=== PATIENT | female | born 1940 | race Caucasian/White ===

== ENCOUNTER 2016-06-04 08:08 | Inpatient (IN) | payer MEDICARE, MEDICAID ==
[~2016-06-04] VITALS: Ht 157.5 cm; Wt 90.3 kg
[2016-06-04] VITALS (20 sets, daily range): BP systolic 130–168; RESP 12–28; TEMP 96.3–98.1; Ht 157.5 cm; Wt 90.3 kg
[2016-06-04] MEDS ORDERED: Atorvastatin 40 MG TAB ONE (08:46)
[2016-06-04] MEDS ORDERED: ASPIRIN 81 MG CHEW TAB ONE ×2 (08:46→08:47)
[2016-06-04] MEDS ORDERED: LINEZOLID PO SCH (09:00)
[2016-06-04] MEDS ORDERED: MAG HYDROX 30 ML UDC PO PRN (10:05)
[2016-06-04] MEDS ORDERED: PROMETHAZINE 25 MG/ML VIAL IV PRN (10:05)
[2016-06-04] MEDS ORDERED: NITROGLYCERIN 50 MG/250 ML 250 ML IV PRN (10:05)
[2016-06-04] MEDS ORDERED: TRAMADOL 50 MG TAB PO PRN (10:05)
[2016-06-04] MEDS ORDERED: NITROGLYCERIN SL 0.4 MG TAB SL PRN ×2 (10:05)
[2016-06-04] MEDS ORDERED: BISACODYL 10 MG SUPP RECTAL PRN (10:05)
[2016-06-04] MEDS ORDERED: SALINE FLUSH 10 ML FLUSH PRN (10:05)
[2016-06-04] MEDS ORDERED: ONDANSETRON 4 MG TAB PO PRN (10:05)
[2016-06-04] MEDS ORDERED: TEMAZEPAM 15 MG CAP PO PRN (10:05)
[2016-06-04] MEDS ORDERED: DOCUSATE SOD 100 MG CAP PO PRN (10:05)
[2016-06-04] MEDS ORDERED: ACETAMINOPHEN 325 MG TAB PO PRN (10:05)
[2016-06-04] MEDS: LINEZOLID 600 MG TAB PO SCH ×2 (12:08→20:16)
[2016-06-04] MEDS ORDERED: TICAGRELOR 90 MG TAB ONE (17:50)
[2016-06-04] MEDS ORDERED: MIDAZOLAM 2 MG/2 ML INJ ONE (17:50)
[2016-06-04] MEDS ORDERED: FENTANYL 100 MCG/2 ML AMP ONE (17:50)
[2016-06-04] MEDS ORDERED: LIDOCAINE 2% 20 ML ONE (17:50)
[2016-06-04] MEDS: LEVEMIR INSULIN SUBQ SCH (18:36)
[2016-06-04] MEDS: TICAGRELOR 90 MG TAB PO SCH (20:14)
[2016-06-04] MEDS: SALINE FLUSH 10 ML FLUSH SCH (20:14)
[2016-06-04] MEDS: Atorvastatin 20 MG TAB PO SCH (20:16)
[2016-06-04] MEDS: ISOSORBIDE DN PO SCH (20:16)
[2016-06-04] MEDS: AMIODARONE 200 MG TAB PO SCH (20:16)
[2016-06-04] MEDS: METOPROLOL TART 25 MG TAB PO SCH (20:17)
[2016-06-04] MEDS: TRAZODONE 50 MG TAB PO SCH (20:17)
[2016-06-04] MEDS: ONDANSETRON 4 MG VIAL IV PRN (20:57)
[2016-06-04] MEDS ORDERED: LINEZOLID 600 MG TAB PO SCH (21:00)
[2016-06-04] MEDS ORDERED: KCL CR 10 MEQ TAB PO SCH (21:00)
[2016-06-05] VITALS (17 sets, daily range): BP systolic 107–142; RESP 16–28; TEMP 97.3–98.8
[2016-06-05] MEDS: SODIUM CHLORIDE 0.9% FLUSH BAG 500 ML IV SCH (05:53)
[2016-06-05] MEDS: ASPIRIN 81 MG CHEW TAB PO SCH (08:48)
[2016-06-05] MEDS: SALINE FLUSH 10 ML FLUSH SCH ×2 (08:48→20:50)
[2016-06-05] MEDS: ISOSORBIDE DN PO SCH ×2 (08:48→21:11)
[2016-06-05] MEDS: AMIODARONE 200 MG TAB PO SCH ×2 (08:49→21:10)
[2016-06-05] MEDS: FAMOTIDINE 20 MG TAB PO SCH (08:49)
[2016-06-05] MEDS: METOPROLOL TART 25 MG TAB PO SCH ×2 (08:49→21:11)
[2016-06-05] MEDS: LINEZOLID 600 MG TAB PO SCH ×2 (08:49→21:11)
[2016-06-05] MEDS: TICAGRELOR 90 MG TAB PO SCH ×2 (08:49→21:10)
[2016-06-05] MEDS: Furosemide 40 MG TAB PO SCH (08:50)
[2016-06-05] MEDS ORDERED: ASPIRIN 81 MG CHEW TAB PO SCH (09:00)
[2016-06-05] MEDS: LEVEMIR INSULIN SUBQ SCH ×2 (09:08→17:00)
[2016-06-05] MEDS ORDERED: DEXTROSE 50% SYRINGE 50 ML IV ONE (18:15)
[2016-06-05] MEDS ORDERED: DEXTROSE 50% 50 ML ONE (18:19)
[2016-06-05] MEDS ORDERED: Furosemide 40 MG/4 ML VIAL IV ONE (19:45)
[2016-06-05] MEDS ORDERED: NEB-Levalbuterol 0.31 MG/3 ML NEBU INH SCH (20:00)
[2016-06-05] MEDS: NEB-XOPENEX 0.63 MG/3 ML INH SCH ×2 (20:00→23:00)
[2016-06-05] MEDS: TRAZODONE 50 MG TAB PO SCH (21:10)
[2016-06-05] MEDS: Atorvastatin 20 MG TAB PO SCH (21:11)
[2016-06-06 00:13] VITALS: BP_SYST 100; RESP 18; TEMP 97.1
[2016-06-06] MEDS: SODIUM CHLORIDE 0.9% FLUSH BAG 500 ML IV SCH (05:51)
[2016-06-06] MEDS: LEVEMIR INSULIN SUBQ SCH ×2 (08:00→17:00)
[2016-06-06] MEDS: NEB-XOPENEX 0.63 MG/3 ML INH SCH ×3 (08:13→15:27)
[2016-06-06 08:40] VITALS: BP_SYST 124; RESP 18; TEMP 97.2
[2016-06-06] MEDS: METOPROLOL TART 25 MG TAB PO SCH ×2 (08:53→20:09)
[2016-06-06] MEDS: FAMOTIDINE 20 MG TAB PO SCH (08:53)
[2016-06-06] MEDS: LINEZOLID 600 MG TAB PO SCH (08:53)
[2016-06-06] MEDS: ASPIRIN 81 MG CHEW TAB PO SCH (08:53)
[2016-06-06] MEDS: Furosemide 40 MG TAB PO SCH (08:53)
[2016-06-06] MEDS: ISOSORBIDE DN PO SCH ×2 (08:53→20:10)
[2016-06-06] MEDS: TICAGRELOR 90 MG TAB PO SCH ×2 (08:53→20:09)
[2016-06-06] MEDS: AMIODARONE 200 MG TAB PO SCH ×2 (08:54→20:09)
[2016-06-06] MEDS: SALINE FLUSH 10 ML FLUSH SCH ×2 (09:04→20:09)
[2016-06-06 11:39] VITALS: BP_SYST 142; RESP 18; TEMP 98.9
[2016-06-06 15:33] VITALS: BP_SYST 124; RESP 18; TEMP 96.5
[2016-06-06 19:34] VITALS: BP_SYST 132
[2016-06-06] MEDS: DUONEB INH SCH (19:49)
[2016-06-06] MEDS: TRAZODONE 50 MG TAB PO SCH (20:09)
[2016-06-06] MEDS: Atorvastatin 20 MG TAB PO SCH (20:10)
[2016-06-06] MEDS: DOCUSATE SOD 100 MG CAP PO SCH (22:29)
[2016-06-06] MEDS: POLYETHYLENE GLYCOL 17 GM PACKET PO SCH (22:30)
[2016-06-06 23:14] VITALS: BP_SYST 130; RESP 18; TEMP 97.6
[2016-06-07 03:41] VITALS: BP_SYST 140; RESP 18; TEMP 97
[2016-06-07] MEDS: SODIUM CHLORIDE 0.9% FLUSH BAG 500 ML IV SCH (05:02)
[2016-06-07 07:26] VITALS: BP_SYST 130; RESP 18; TEMP 97.5
[2016-06-07] MEDS: DUONEB INH SCH ×3 (07:55→20:02)
[2016-06-07] MEDS: LEVEMIR INSULIN SUBQ SCH ×2 (08:00→17:00)
[2016-06-07] MEDS: DOCUSATE SOD 100 MG CAP PO SCH ×2 (09:00→20:15)
[2016-06-07] MEDS: ASPIRIN 81 MG CHEW TAB PO SCH (09:16)
[2016-06-07] MEDS: TICAGRELOR 90 MG TAB PO SCH ×2 (09:16→20:13)
[2016-06-07] MEDS: AMIODARONE 200 MG TAB PO SCH ×2 (09:16→20:13)
[2016-06-07] MEDS: METOPROLOL TART 25 MG TAB PO SCH ×2 (09:16→20:13)
[2016-06-07] MEDS: POLYETHYLENE GLYCOL 17 GM PACKET PO SCH (09:17)
[2016-06-07] MEDS: FAMOTIDINE 20 MG TAB PO SCH (09:19)
[2016-06-07] MEDS: SALINE FLUSH 10 ML FLUSH SCH ×2 (09:19→20:15)
[2016-06-07] MEDS: ISOSORBIDE DN PO SCH ×2 (09:19→20:15)
[2016-06-07] MEDS: ONDANSETRON 4 MG VIAL IV PRN (09:31)
[2016-06-07 11:44] VITALS: BP_SYST 132; RESP 18; TEMP 97.3
[2016-06-07] MEDS: CEFTRIAXONE 1 GM in SODIUM CHLORIDE 0.9% 50 ML IV SCH (12:22)
[2016-06-07 15:28] VITALS: BP_SYST 128; RESP 18; TEMP 97.6
[2016-06-07] MEDS ORDERED: BISACODYL 10 MG SUPP RECTAL PRN (20:00)
[2016-06-07] MEDS: SODIUM CHLORIDE 0.9% 1,000 ML IV SCH (20:12)
[2016-06-07] MEDS: TRAZODONE 50 MG TAB PO SCH (20:12)
[2016-06-07] MEDS: Atorvastatin 20 MG TAB PO SCH (20:13)
[2016-06-07 20:23] VITALS: BP_SYST 128; RESP 18; TEMP 96.5
[2016-06-07 22:52] VITALS: BP_SYST 140; RESP 20; TEMP 97.8
[2016-06-08 03:27] VITALS: BP_SYST 138; RESP 18; TEMP 97.8
[2016-06-08] MEDS: SODIUM CHLORIDE 0.9% FLUSH BAG 500 ML IV SCH (05:49)
[2016-06-08 08:05] VITALS: BP_SYST 162; RESP 16; TEMP 97
[2016-06-08] MEDS ORDERED: MISSING DOSE XX ONE (08:25)
[2016-06-08] MEDS: DOCUSATE SOD 100 MG CAP PO SCH ×2 (08:29→21:00)
[2016-06-08] MEDS: ASPIRIN 81 MG CHEW TAB PO SCH (08:29)
[2016-06-08] MEDS: AMIODARONE 200 MG TAB PO SCH (08:30)
[2016-06-08] MEDS: FAMOTIDINE 20 MG TAB PO SCH (08:30)
[2016-06-08] MEDS: LEVEMIR INSULIN SUBQ SCH ×2 (08:31→18:48)
[2016-06-08] MEDS: TICAGRELOR 90 MG TAB PO SCH (08:31)
[2016-06-08] MEDS: METOPROLOL TART 25 MG TAB PO SCH (08:31)
[2016-06-08] MEDS: CEFTRIAXONE 1 GM in SODIUM CHLORIDE 0.9% 50 ML IV SCH (08:31)
[2016-06-08] MEDS: DUONEB INH SCH ×3 (08:49→19:52)
[2016-06-08] MEDS: SODIUM CHLORIDE 0.9% 1,000 ML IV SCH (09:30)
[2016-06-08] MEDS: POLYETHYLENE GLYCOL 17 GM PACKET PO SCH (09:30)
[2016-06-08] MEDS: SALINE FLUSH 10 ML FLUSH SCH (09:31)
[2016-06-08] MEDS: ISOSORBIDE DN PO SCH (11:09)
[2016-06-08 11:45] VITALS: BP_SYST 136; RESP 16; TEMP 96.4
[2016-06-08 14:55] VITALS: BP_SYST 128; RESP 16; TEMP 97.4
[2016-06-08] MEDS ORDERED: hePARIN 1,000 UNITS/ML (PORCINE) 10 ML ONE (16:57)
[2016-06-08] MEDS ORDERED: SODIUM CHLORIDE 0.9% 1,000 ML IV SCH (17:05)
[2016-06-08] MEDS ORDERED: ALBUMIN HUMAN 25GM (25%) 100 ML IV PRN (17:05)
[2016-06-08] MEDS ORDERED: SODIUM CHLORIDE 0.9% 1,000 ML IV PRN (17:05)
[2016-06-08] MEDS ORDERED: ONDANSETRON 4 MG VIAL IV PRN ×2 (17:05)
[2016-06-08] MEDS: BUMETANIDE 1 MG/4 ML VIAL IV SCH (18:49)
[2016-06-08 20:08] VITALS: BP_SYST 156; RESP 18; TEMP 96.2
[2016-06-09] VITALS (9 sets, daily range): BP systolic 112–146; RESP 16–20; TEMP 96.5–98.6
[2016-06-09] MEDS: TICAGRELOR 90 MG TAB PO SCH ×3 (00:58→22:08)
[2016-06-09] MEDS: TRAZODONE 50 MG TAB PO SCH ×2 (00:58→22:07)
[2016-06-09] MEDS: TEMAZEPAM 7.5 MG CAP PO PRN ×2 (00:59→22:07)
[2016-06-09] MEDS: ISOSORBIDE DN PO SCH ×3 (01:09→22:07)
[2016-06-09] MEDS: METOPROLOL TART 25 MG TAB PO SCH ×3 (01:10→22:08)
[2016-06-09] MEDS: Atorvastatin 20 MG TAB PO SCH ×2 (01:12→22:07)
[2016-06-09] MEDS: AMIODARONE 200 MG TAB PO SCH ×3 (01:12→22:08)
[2016-06-09] MEDS: SALINE FLUSH 10 ML FLUSH SCH ×3 (01:22→22:09)
[2016-06-09] MEDS: SODIUM CHLORIDE 0.9% FLUSH BAG 500 ML IV SCH (06:32)
[2016-06-09] MEDS ORDERED: SODIUM CHLORIDE 0.9% 1,000 ML IV SCH (07:00)
[2016-06-09] MEDS ORDERED: ALBUMIN HUMAN 25GM (25%) 100 ML IV PRN (07:00)
[2016-06-09] MEDS ORDERED: SODIUM CHLORIDE 0.9% 1,000 ML IV PRN (07:00)
[2016-06-09] MEDS: POLYETHYLENE GLYCOL 17 GM PACKET PO SCH (07:42)
[2016-06-09] MEDS: LEVEMIR INSULIN SUBQ SCH ×2 (08:00→17:10)
[2016-06-09] MEDS: DUONEB INH SCH ×3 (08:06→19:48)
[2016-06-09] MEDS: BUMETANIDE 1 MG/4 ML VIAL IV SCH ×2 (08:13→17:05)
[2016-06-09] MEDS: CEFTRIAXONE 1 GM in SODIUM CHLORIDE 0.9% 50 ML IV SCH (08:14)
[2016-06-09] MEDS: ASPIRIN 81 MG CHEW TAB PO SCH (08:14)
[2016-06-09] MEDS: FAMOTIDINE 20 MG TAB PO SCH (08:15)
[2016-06-09] MEDS: DOCUSATE SOD 100 MG CAP PO SCH ×2 (08:28→20:44)
[2016-06-09] MEDS: ONDANSETRON 4 MG VIAL IV PRN (09:19)
[2016-06-09] MEDS: LORAZEPAM 0.5 MG TAB PO PRN (22:08)
[2016-06-10 02:47] VITALS: BP_SYST 122; RESP 16; TEMP 97.9
[2016-06-10] MEDS: SODIUM CHLORIDE 0.9% FLUSH BAG 500 ML IV SCH (06:26)
[2016-06-10 07:02] VITALS: BP_SYST 132; RESP 22; TEMP 98.5
[2016-06-10] MEDS: DUONEB INH SCH ×3 (07:47→18:58)
[2016-06-10] MEDS: LEVEMIR INSULIN SUBQ SCH ×2 (08:00→17:00)
[2016-06-10] MEDS: SALINE FLUSH 10 ML FLUSH SCH ×2 (08:00→20:00)
[2016-06-10] MEDS: METOPROLOL TART 25 MG TAB PO SCH (09:00)
[2016-06-10] MEDS: DOCUSATE SOD 100 MG CAP PO SCH ×2 (09:00→21:00)
[2016-06-10] MEDS: FAMOTIDINE 20 MG TAB PO SCH (09:00)
[2016-06-10] MEDS: AMIODARONE 200 MG TAB PO SCH (09:00)
[2016-06-10] MEDS: POLYETHYLENE GLYCOL 17 GM PACKET PO SCH (09:00)
[2016-06-10] MEDS: ASPIRIN 81 MG CHEW TAB PO SCH (09:00)
[2016-06-10] MEDS: ISOSORBIDE DN PO SCH ×2 (09:00→21:00)
[2016-06-10 10:27] VITALS: BP_SYST 152; RESP 20; TEMP 98.7
[2016-06-10] MEDS: BUMETANIDE 1 MG/4 ML VIAL IV SCH ×2 (13:49→17:00)
[2016-06-10] MEDS: CEFTRIAXONE 1 GM in SODIUM CHLORIDE 0.9% 50 ML IV SCH (13:49)
[2016-06-10] MEDS: TICAGRELOR 90 MG TAB PO SCH ×2 (13:50→21:50)
[2016-06-10 15:08] VITALS: BP_SYST 142; RESP 20; TEMP 98.1
[2016-06-10 19:00] VITALS: BP_SYST 174; RESP 18; TEMP 97.8
[2016-06-10] MEDS: Atorvastatin 20 MG TAB PO SCH (21:00)
[2016-06-10] MEDS ORDERED: MISSING DOSE XX ONE (21:30)
[2016-06-10 23:00] VITALS: BP_SYST 170; RESP 16; TEMP 98.3
[2016-06-11 03:00] VITALS: BP_SYST 172; RESP 16; TEMP 97.9
[2016-06-11] MEDS: SODIUM CHLORIDE 0.9% FLUSH BAG 500 ML IV SCH (06:08)
[2016-06-11] MEDS: DUONEB INH SCH ×3 (06:21→19:40)
[2016-06-11] MEDS: SALINE FLUSH 10 ML FLUSH SCH ×2 (08:00→22:18)
[2016-06-11 08:03] VITALS: BP_SYST 178; RESP 16; TEMP 97.8
[2016-06-11] MEDS: POLYETHYLENE GLYCOL 17 GM PACKET PO SCH (08:34)
[2016-06-11] MEDS: DOCUSATE SOD 100 MG CAP PO SCH ×2 (09:00→21:00)
[2016-06-11] MEDS: FAMOTIDINE 20 MG TAB PO SCH (09:00)
[2016-06-11] MEDS: ASPIRIN 81 MG CHEW TAB PO SCH (09:00)
[2016-06-11] MEDS: AMIODARONE 200 MG TAB PO SCH (09:00)
[2016-06-11] MEDS: TICAGRELOR 90 MG TAB PO SCH ×2 (09:00→22:18)
[2016-06-11] MEDS: ISOSORBIDE DN PO SCH ×2 (09:00→21:00)
[2016-06-11] MEDS: LEVEMIR INSULIN SUBQ SCH ×2 (10:30→17:09)
[2016-06-11 11:36] VITALS: BP_SYST 130; RESP 18; TEMP 98.3
[2016-06-11] MEDS: BUMETANIDE 1 MG/4 ML VIAL IV SCH ×2 (12:15→17:09)
[2016-06-11] MEDS: CEFTRIAXONE 1 GM in SODIUM CHLORIDE 0.9% 50 ML IV SCH (12:15)
[2016-06-11 15:48] VITALS: BP_SYST 150; RESP 16; TEMP 98.2
[2016-06-11] MEDS ORDERED: METOLAZONE 5 MG TAB PO ONE (20:05)
[2016-06-11 20:30] VITALS: BP_SYST 160; RESP 24; TEMP 98.1
[2016-06-11] MEDS: Atorvastatin 20 MG TAB PO SCH (21:00)
[2016-06-11] MEDS ORDERED: MISSING DOSE XX ONE (21:55)
[2016-06-12] VITALS (7 sets, daily range): BP systolic 138–170; RESP 18–24; TEMP 97.4–99
[2016-06-12] MEDS: SODIUM CHLORIDE 0.9% FLUSH BAG 500 ML IV SCH (06:35)
[2016-06-12] MEDS: DUONEB INH SCH ×3 (07:33→19:27)
[2016-06-12] MEDS ORDERED: METOLAZONE 5 MG TAB PO ONE (09:00)
[2016-06-12] MEDS: SALINE FLUSH 10 ML FLUSH SCH ×2 (09:31→19:54)
[2016-06-12] MEDS: BUMETANIDE 1 MG/4 ML VIAL IV SCH ×2 (09:33→17:58)
[2016-06-12] MEDS: CEFTRIAXONE 1 GM in SODIUM CHLORIDE 0.9% 50 ML IV SCH (09:35)
[2016-06-12] MEDS: POLYETHYLENE GLYCOL 17 GM PACKET PO SCH (09:35)
[2016-06-12] MEDS: ASPIRIN 81 MG CHEW TAB PO SCH (09:35)
[2016-06-12] MEDS: LEVEMIR INSULIN SUBQ SCH ×2 (09:35→17:59)
[2016-06-12] MEDS: ISOSORBIDE DN PO SCH ×2 (09:35→19:53)
[2016-06-12] MEDS: FAMOTIDINE 20 MG TAB PO SCH (09:36)
[2016-06-12] MEDS: AMIODARONE 200 MG TAB PO SCH (09:36)
[2016-06-12] MEDS: DOCUSATE SOD 100 MG CAP PO SCH ×2 (09:36→19:53)
[2016-06-12] MEDS: TICAGRELOR 90 MG TAB PO SCH ×2 (09:36→19:53)
[2016-06-12] MEDS: LORAZEPAM 0.5 MG TAB PO PRN ×2 (09:46→19:53)
[2016-06-12] MEDS ORDERED: METOPROLOL TART 25 MG TAB PO SCH (12:35)
[2016-06-12] MEDS ORDERED: ATROPINE 1 MG/10 ML SYRINGE IV ONE (13:50)
[2016-06-12] MEDS: Atorvastatin 20 MG TAB PO SCH (19:51)
[2016-06-13] VITALS (7 sets, daily range): BP systolic 98–122; RESP 18–20; TEMP 97.9–98.8
[2016-06-13] MEDS: SODIUM CHLORIDE 0.9% FLUSH BAG 500 ML IV SCH (05:03)
[2016-06-13] MEDS: DUONEB INH SCH ×3 (06:43→19:58)
[2016-06-13] MEDS: POLYETHYLENE GLYCOL 17 GM PACKET PO SCH (08:11)
[2016-06-13] MEDS: DOCUSATE SOD 100 MG CAP PO SCH ×2 (08:12→19:28)
[2016-06-13] MEDS: LORAZEPAM 0.5 MG TAB PO PRN ×2 (08:12→19:28)
[2016-06-13] MEDS: FAMOTIDINE 20 MG TAB PO SCH (08:12)
[2016-06-13] MEDS: ASPIRIN 81 MG CHEW TAB PO SCH (08:12)
[2016-06-13] MEDS: BUMETANIDE 1 MG/4 ML VIAL IV SCH ×2 (08:12→17:32)
[2016-06-13] MEDS: TICAGRELOR 90 MG TAB PO SCH ×2 (08:12→19:28)
[2016-06-13] MEDS: SALINE FLUSH 10 ML FLUSH SCH ×2 (08:13→19:49)
[2016-06-13] MEDS: ISOSORBIDE DN PO SCH ×2 (08:13→19:28)
[2016-06-13] MEDS: AMIODARONE 200 MG TAB PO SCH (08:15)
[2016-06-13] MEDS ORDERED: KCL 20 MEQ/15 ML UDC PO ONE ×2 (08:30→22:10)
[2016-06-13] MEDS ORDERED: METOPROLOL TART 25 MG TAB PO SCH (09:00)
[2016-06-13] MEDS: CEFTRIAXONE 1 GM in SODIUM CHLORIDE 0.9% 50 ML IV SCH (10:36)
[2016-06-13] MEDS: LEVEMIR INSULIN SUBQ SCH ×2 (10:37→17:31)
[2016-06-13] MEDS ORDERED: MISSING DOSE XX ONE (10:40)
[2016-06-13] MEDS: Atorvastatin 20 MG TAB PO SCH (19:27)
[2016-06-13] MEDS ORDERED: CARDIZEM 1 MG/ML DRIP 125 ML IV SCH (21:00)
[2016-06-14] MEDS ORDERED: MORPHINE 2 MG/ML SYR IV PRN (00:40)
[2016-06-14] MEDS: SODIUM CHLORIDE 0.9% FLUSH BAG 500 ML IV SCH (05:09)
[2016-06-14] MEDS: DUONEB INH SCH ×2 (07:29→12:15)
[2016-06-14] MEDS: LEVEMIR INSULIN SUBQ SCH (08:00)
[2016-06-14] MEDS: SALINE FLUSH 10 ML FLUSH SCH (08:00)
[2016-06-14 08:25] VITALS: BP_SYST 138; RESP 20; TEMP 96.4
[2016-06-14] MEDS: AMIODARONE 200 MG TAB PO SCH (08:42)
[2016-06-14] MEDS: TICAGRELOR 90 MG TAB PO SCH (08:42)
[2016-06-14] MEDS: ASPIRIN 81 MG CHEW TAB PO SCH (08:42)
[2016-06-14 08:58] VITALS: BP_SYST 130; RESP 20; TEMP 98.9
[2016-06-14] MEDS: FAMOTIDINE 20 MG TAB PO SCH (09:00)
[2016-06-14] MEDS: DOCUSATE SOD 100 MG CAP PO SCH (09:00)
[2016-06-14] MEDS: POLYETHYLENE GLYCOL 17 GM PACKET PO SCH (09:00)
[2016-06-14] MEDS ORDERED: KCL CR 10 MEQ CAP PO SCH ×2 (09:45→10:33)
[2016-06-14] MEDS ORDERED: Furosemide 40 MG TAB PO SCH (10:34)
[2016-06-14 11:57] VITALS: BP_SYST 130; RESP 20; TEMP 98.9
== END 2016-06-14 14:46 | DRG 246 ==
LOC: ENRESERVTM → CANRESERV → ENRESERVDT → ER 08:08 → CCU 10:17 → ENPENDDIS 10:17 → 4THW 06-05 15:15
PROVIDERS: ADMIT Internal Medicine Cardiovascular Disease; ATTEND Internal Medicine Cardiovascular Disease
PROC: 027035Z Dilation of Coronary Artery, One Artery with Two Drug-eluting Intraluminal Devices, Percutaneous Approach (ICD-10-PCS; principal; 2016-06-04)
PROC: 4A023N7 Measurement of Cardiac Sampling and Pressure, Left Heart, Percutaneous Approach (ICD-10-PCS; 2016-06-04)
PROC: B2101ZZ Fluoroscopy of Single Coronary Artery using Low Osmolar Contrast (ICD-10-PCS; 2016-06-04)
DX: I20.0 Unstable angina (principal); G93.41 Metabolic encephalopathy; N17.9 Acute kidney failure, unspecified; Z68.41 Body mass index [BMI] 40.0-44.9, adult; I13.0 Hypertensive heart and chronic kidney disease with heart failure and stage 1 through stage 4 chronic kidney disease, or unspecified chronic kidney disease; I50.20 Unspecified systolic (congestive) heart failure; I42.0 Dilated cardiomyopathy; E66.01 Morbid (severe) obesity due to excess calories; N39.0 Urinary tract infection, site not specified; Z87.891 Personal history of nicotine dependence; J44.9 Chronic obstructive pulmonary disease, unspecified; I48.91 Unspecified atrial fibrillation; E11.9 Type 2 diabetes mellitus without complications; Z79.4 Long term (current) use of insulin; Z79.51 Long term (current) use of inhaled steroids; Z79.82 Long term (current) use of aspirin; N18.3 Chronic kidney disease, stage 3 (moderate); N14.1 Nephropathy induced by other drugs, medicaments and biological substances
CPT/HCPCS: 36415; 36600; 36800; 71010; 80048; 80053; 80061; 80069; 81001; 82436; 82550; 82570; 82728; 82803; 82947; 83036; 83540; 83735; 83880; 84100; 84156; 84300; 84466; 84484; 85014; 85018; 85025; 85347; 85610; 85730; 86704; 86706; 87040; 87077; 87088; 87186; 87340; 89050; 93005; 93306; 93458; 94640; 94799; 96374; 99222; 99223; 99232; 99233